=== PATIENT | male | born 1995 | race Hispanic/Latino ===

== ENCOUNTER → 2018-11-17 | Day surgery (SDC) | payer BC ==
[~2018-11-17] MED LIST: ACETAMINOPHEN 1000 MG/100 ML IV ONE; CEFTRIAXONE SOD 1 GM/NS 50 ML 50 ML IV ONE; DEXAMETHASONE SOD PHOS INJ 4 MG/ML VIAL ONE; DOXYCYCLINE HY100 MG PO; FENTANYL CITRATE/PF 100MCG/2 ML INJ ONE; HYDROMORPHONE 2MG/ML 2 MG/ML ML ONE; LIDOCAINE HCL 2% LOCAL INJ 5 ML SDV VIAL INJ ONE; MIDAZOLAM HCL 2 MG/2 ML VIAL ONE; MORPHINE SULFATE INJ 10 MG/ML ONE; ONDANSETRON HCL INJ 2MG/ML 2ML 2 MG/ML VIAL ONE; PROPOFOL IV EMULSION 10 MG/ML 20 ML VIAL ONE; SEVOFLURANE INHAL SOLN 250 ML PEN BTL ONE
[2018-11-17 13:00] VITALS: BP 118/89
--- NOTE | 2018-11-18 07:18 | Operative Report ---
DATE OF PROCEDURE: 11/17/2018 SURGEON: Calvin Acevedo MD PREOPERATIVE DIAGNOSIS: Very severe phimosis. POSTOPERATIVE DIAGNOSIS: Very severe phimosis. OPERATION: Circumcision. ANESTHETIC: General. DESCRIPTION OF PROCEDURE: Mr. Andrade is a 23-year-old male, who presented with a chief complaint of a severe phimosis. He also tells me that he has significant pain and tearing of his foreskin every time he have any sexual encounter. On physical exam, there was very severe phimosis and I could not pull the foreskin past the head of the penis. This patient was placed on the table in the supine position and was prepped and draped in a sterile manner after satisfactory anesthesia. A collar incision was made about 2 mm proximal to the edmonds. Another collar incision was made over the tight redundant foreskin, leaving enough skin for correction in this patient. The foreskin was excised. Hemostasis was obtained all through using the electrocautery. Both skin edges were then approximated interruptedly using 4-0 Vicryl. A sterile dressing was applied using Vaseline gauze and then a 4 x 4. Estimated blood loss was about 10 to 15 mL. Plans for this patient is to be placed on Keflex 500 mg one three times a day for one week. Tylenol No. 3 one every 4 to 6 hours p.r.n. and was given 30. He is to return to the office in about one month. Calvin Acevedo MD MA/MODL /[id number]
== END | disposition home or self-care (01) ==
LOC: OR 07:39
PROVIDERS: ATTEND Specialist
DX: N47.1 Phimosis (principal); N48.1 Balanitis; Z91.013 Allergy to seafood
CPT/HCPCS: 54161; 88304; J0131; J0696; J1100; J1170; J2001; J2250; J2270; J2405; J2704